=== PATIENT | female | born 1975 | race Caucasian/White ===

== ENCOUNTER → 2016-12-22 | Outpatient (CLI) | payer BC ==
[~2016-12-22] MED LIST: ALPR.25T; AMOX250S6 PO; ATN50T PO; CYCL-97 PO; DULO30CA; HYDR1TAB PO; HYDR473S16 PO; LVF500T; LVT.025T PO; METH4TAB PO; PARO40TA47 PO; PHEN200T27 PO; PRM25T; tetracaine suckers PO
--- NOTE | 2016-12-22 19:37 | Diagnostic Imaging Report ---
Digital mammogram bilateral screening with tomosynthesis. This study was compared to the prior exams of 12/14/2015, 12/05/2014, and 10/14/2012. At this time, there are no current complaints. The current study was also evaluated with a Computer Aided Detection (CAD) system. FINDINGS: The fibroglandular tissue in both breasts is heterogeneously dense. This does limit the sensitivity of this exam. Overall, there does not appear to have been any significant change when compared to the prior study. No primary or secondary sign of malignancy is noted. 3D tomographic images fail to show any sign of malignancy. IMPRESSION: There is no radiographic evidence for malignancy. ACR BI-RADS Category 1: Negative. Result letter will be mailed to the patient. Note: At least 10% of breast cancer is not imaged by mammography. Dictated by: Dictated on workstation # [id number]
== END ==
LOC: RAD 07:16
PROVIDERS: ATTEND Internal Medicine
DX: Z12.31 Encounter for screening mammogram for malignant neoplasm of breast (principal)
CPT/HCPCS: 77067

== ENCOUNTER → 2017-07-16 | Outpatient (CLI) | payer BC, OTHER | LOC: ONC 13:52 | PROVIDERS: ATTEND Nurse Practitioner Adult Health | DX: Z71.89 Other specified counseling (principal); Z80.0 Family history of malignant neoplasm of digestive organs; Z80.3 Family history of malignant neoplasm of breast; Z80.49 Family history of malignant neoplasm of other genital organs; I10 Essential (primary) hypertension; E03.9 Hypothyroidism, unspecified; F32.9 Major depressive disorder, single episode, unspecified; Z79.899 Other long term (current) drug therapy | CPT/HCPCS: 99213 ==

== ENCOUNTER → 2018-01-15 | Outpatient (CLI) | payer BC ==
--- NOTE | 2018-01-15 17:55 | Diagnostic Imaging Report ---
INDICATION: Routine screening. COMPARISON: Prior study from 12/22/2016 and 12/14/2015. EXAMINATION: Bilateral digital screening mammogram with CAD. 3D tomographic images were obtained and reviewed. The current study was also evaluated with a Computer Aided Detection (CAD) system. FINDINGS: Both breasts remain heterogeneously dense, limiting the sensitivity of mammography. The parenchymal pattern appears stable. No mass or malignant appearing microcalcifications are seen. The axillae are unremarkable. IMPRESSION: BI-RADS category 1. No mammographic features suspicious for malignancy are identified. Dictated by: Dictated on workstation # [id number]
== END ==
LOC: RAD 07:27
PROVIDERS: ATTEND Internal Medicine
DX: Z12.31 Encounter for screening mammogram for malignant neoplasm of breast (principal)
CPT/HCPCS: 77067

== ENCOUNTER → 2019-02-04 | Outpatient (CLI) | payer BC ==
--- NOTE | 2019-02-04 09:17 | Diagnostic Imaging Report ---
INDICATION: Routine screening. COMPARISON: 01/15/2018 and 12/22/2016. TECHNIQUE: 2D and 3D bilateral screening mammography was performed with CAD. FINDINGS: Both breasts are heterogeneously dense, limiting the sensitivity of mammography. The parenchymal pattern is stable. No mass or malignant appearing microcalcifications are seen. Occasional benign calcifications are noted. The axillae are unremarkable. IMPRESSION: No mammographic features suspicious for malignancy are identified. ACR BI-RADS Category 2: Benign findings. Result letter will be mailed to the patient. Note: At least 10% of breast cancer is not imaged by mammography. Dictated by: Dictated on workstation # [id number]
== END ==
LOC: RAD 07:51
PROVIDERS: ATTEND Internal Medicine
DX: Z12.31 Encounter for screening mammogram for malignant neoplasm of breast (principal)
CPT/HCPCS: 77067

== ENCOUNTER → 2020-02-15 | Outpatient (CLI) | payer BC ==
--- NOTE | 2020-02-15 11:57 | Diagnostic Imaging Report ---
INDICATION: Routine screening. Comparison is made with prior mammogram from 02/04/2019 and 01/15/2018. 2-D and 3-D bilateral screening mammography was performed with CAD. Both breasts are heterogeneously dense, limiting the sensitivity of mammography. The parenchymal pattern is stable. No mass or malignant appearing microcalcifications are seen. Axillae are unremarkable. IMPRESSION: BI-RADS Category 1 No mammographic features suspicious for malignancy are identified. ACR BI-RADS Category 1: Negative. Result letter will be mailed to the patient. Note: At least 10% of breast cancer is not imaged by mammography. Dictated by: Dictated on workstation # [id number]
== END ==
LOC: RAD 07:45
PROVIDERS: ATTEND Internal Medicine
DX: Z12.31 Encounter for screening mammogram for malignant neoplasm of breast (principal)
CPT/HCPCS: 77063; 77067

== ENCOUNTER → 2021-02-15 | Outpatient (CLI) | payer BC ==
--- NOTE | 2021-02-18 11:28 | Diagnostic Imaging Report ---
INDICATION: Routine screening. Comparison is made prior mammogram from 02/15/2020 and 02/04/2019. 2-D and 3-D bilateral screening mammography was performed with CAD. Both breasts are heterogeneously dense, limiting the sensitivity of mammography. The parenchymal pattern is stable. No mass or malignant-appearing microcalcifications are seen. There are benign calcifications in the left breast. Axillae are unremarkable. IMPRESSION: BI-RADS Category 2 No mammographic features suspicious for malignancy are identified. ACR BI-RADS Category 2: Benign findings. Result letter will be mailed to the patient. Note: At least 10% of breast cancer is not imaged by mammography. Dictated by: Dictated on workstation # [id number]
== END ==
LOC: RAD 08:15
PROVIDERS: ATTEND Internal Medicine
DX: Z12.31 Encounter for screening mammogram for malignant neoplasm of breast (principal)
CPT/HCPCS: 77063; 77067

== ENCOUNTER → 2022-02-21 | Outpatient (CLI) | payer BC ==
--- NOTE | 2022-02-21 11:33 | Diagnostic Imaging Report ---
Indication: Routine screening. Comparison is made with prior mammograms from 02/15/2021 and 02/15/2020. 2-D and 3-D bilateral screening mammography was performed with CAD. Both breasts are heterogeneously dense, limiting the sensitivity of mammography. The parenchymal pattern is stable. No mass or malignant-appearing microcalcifications are seen. There are benign calcifications present. Axillae are unremarkable. IMPRESSION: BI-RADS Category 2 No mammographic features suspicious for malignancy are identified. ACR BI-RADS Category 2: Benign findings. Result letter will be mailed to the patient. Note: At least 10% of breast cancer is not imaged by mammography. Dictated by: Dictated on workstation # [id number]
== END ==
LOC: RAD 07:17
PROVIDERS: ATTEND Internal Medicine
DX: Z12.31 Encounter for screening mammogram for malignant neoplasm of breast (principal)
CPT/HCPCS: 77063; 77067

== ENCOUNTER → 2022-04-23 | Outpatient (CLI) | payer BC ==
--- NOTE | 2022-04-23 14:26 | Diagnostic Imaging Report ---
INDICATION: Pain and swelling in both hands. TECHNIQUE: AP, oblique, and lateral views of both hands were obtained. FINDINGS: No fracture or acute bony abnormality is seen. The joint spaces are unremarkable. IMPRESSION: Negative bilateral hands. Dictated by: Dictated on workstation # [id number]
== END ==
LOC: RAD 07:04
PROVIDERS: ATTEND Internal Medicine
DX: M19.041 Primary osteoarthritis, right hand (principal); M19.042 Primary osteoarthritis, left hand

== ENCOUNTER 2022-10-22 09:28 | Outpatient (CLI) | payer BC ==
[~2022-10-22] VITALS: Ht 165.1 cm; Wt 71.8 kg
[2022-10-22] MEDS ORDERED: LEVO50TA6 PO (14:16)
[2022-10-22] MEDS ORDERED: AMPH20TA2 PO (14:16)
[2022-10-22] MEDS ORDERED: OLME20TA24 PO (14:16)
[2022-10-22] MEDS ORDERED: PARO40TA3 PO (14:16)
[2022-10-22] MEDS ORDERED: ACYC-112 PO (14:16)
[2022-10-22] MEDS ORDERED: AMLO-250 PO (14:16)
[2022-10-22] MEDS ORDERED: MELO15TA39 PO (14:16)
[2022-10-22] MEDS ORDERED: LIOT25TA11 PO (14:16)
[2022-10-22] MEDS ORDERED: ATEN25TA PO (14:16)
[2022-10-22] MEDS ORDERED: ESTR1TAB24 PO (14:16)
== END 2022-10-22 14:19 | disposition home or self-care (01) ==
LOC: PREOP 09:28
PROVIDERS: ATTEND Surgery
DX: Z01.818 Encounter for other preprocedural examination (principal)

== ENCOUNTER → 2022-10-24 | Outpatient (CLI) | payer BC ==
[~2022-10-24] MED LIST changes: +ACYC-112 PO; +AMLO-250 PO; +AMPH20TA2 PO; +ATEN25TA PO; +ESTR1TAB24 PO; +LEVO50TA6 PO; +LIOT25TA11 PO; +MELO15TA39 PO; +OLME20TA24 PO; +PARO40TA3 PO
== END ==
LOC: CARD 10:17
PROVIDERS: ATTEND Internal Medicine
DX: I34.0 Nonrheumatic mitral (valve) insufficiency (principal)
CPT/HCPCS: 93306

== ENCOUNTER 2022-10-29 12:22 | Day surgery (SDC) | payer BC ==
[~2022-10-29] VITALS: Ht 165 cm; Wt 71.8 kg
[2022-10-29] MEDS ORDERED: LACTATED RINGERS 1,000 ML IV STA (12:24)
[2022-10-29] MEDS ORDERED: LIDOCAINE JELLY 2% 6 ML SYRINGE MM PRN (12:30)
[2022-10-29 12:35] VITALS: BP 140/84
--- NOTE | 2022-10-29 13:01 | Progress Note-Pre Operative ---
Pre-Operative Progress Note Date of Available H&P: Oct 29, 2022 Date H&P Reviewed: Oct 29, 2022 Time H&P Reviewed: 13:00 History & Physical: No changes noted Pre-Operative Diagnosis: screening o TAWANNA RUTH MD Oct 29, 2022 13:01
--- NOTE | 2022-10-29 13:02 | Discharge Inst-Surgical ---
D/C Lap Instructions-FLORY Follow Up Activity as tolerated High Fiber Diet 25g or more per day Avoid Alcohol, Caffeine, Spicy [place] and Acid foods. Drink 64 fluid oz or more of fluids per day. Symptoms to Report: Fever over 101 degree F, Nausea/Vomiting If any problems/questions: Contact your physician or go to Emergency Room TAWANNA RUTH MD Oct 29, 2022 13:02
[2022-10-29] MEDS ORDERED: ONDANSETRON 4 MG/2 ML (SDV) Z0FRAN IVP PRN (13:15)
[2022-10-29] MEDS ORDERED: ONDANSETRON 4 MG (ZOFRAN) ORAL DISSOLVE TAB PO PRN (13:15)
[2022-10-29] MEDS ORDERED: LACTATED RINGERS 1,000 ML IV ONE (13:42)
[2022-10-29] MEDS ORDERED: PROPOFOL INJECTION 50 ML IV ONE (13:45)
[2022-10-29] MEDS ORDERED: MIDAZOLAM 2 MG/2 ML (VERSED) VIAL ONE (13:45)
[2022-10-29 14:15] VITALS: BP 130/73
--- NOTE | 2022-10-29 14:15 | Anesthesia-General Post-Op ---
MAC Patient Condition Mental Status/LOC: Same as Preop Cardiovascular: Satisfactory Nausea/Vomiting: Absent Respiratory: Satisfactory Pain: Controlled Complications: Absent Post Op Complications Complications None Follow Up Care/Instructions Patient Instructions None needed. Anesthesiology Discharge Order Discharge Order Patient is doing well, no complaints, stable vital signs, no apparent adverse anesthesia problems. No complications reported per nursing. ALEX MOORE CARTOGRAPHY TECHNICIAN Oct 29, 2022 14:15
[2022-10-29 14:20] VITALS: BP 151/82
[2022-10-29] MEDS ORDERED: LIDOCAINE JELLY 2% 6 ML SYRINGE ONE (14:20)
--- NOTE | 2022-10-29 14:31 | Progress Note-Post Operative ---
Post-Operative Progess Note Surgeon (s)/Marble Machine Operator (s) Surgeon TAWANNA RUTH MD Marble Machine Operator: none Pre-Operative Diagnosis screening colo Post-Operative Diagnosis normal colon and rectum Procedure & Operative Findings Date of Procedure 10/29/22 Procedure Performed/Findings colonoscopy Anesthesia Type mac Estimated Blood Loss Estimated blood loss (mL): minimal Specimens/Packing Specimens Removed none TAWANNA RUTH MD Oct 29, 2022 14:31
[2022-10-29 14:40] VITALS: BP 153/89
--- NOTE | 2022-10-29 23:11 | OPERATIVE REPORT ---
DATE OF SERVICE: 10/29/2022 PRIMARY CARE PHYSICIAN: Ernestine Will DO PREOPERATIVE DIAGNOSIS: Screening colonoscopy with family history of colon cancer. POSTOPERATIVE DIAGNOSIS: Normal colon and rectum. PROCEDURE: Colonoscopy. SURGEON: Tawanna Garcia MD ANESTHESIA: Monitored anesthesia care. ESTIMATED BLOOD LOSS: Minimal. FINDINGS: Normal colon and rectum. DISPOSITION: The patient tolerated the procedure well. INDICATIONS: The patient is a 46-year-old female referred over to us for screening colonoscopy. She states that she did have a colonoscopy before; however, was greater than 10 years ago. She does have a family history of colon cancer with her father having the disease at around age 45. She also reports that her mother and sister were both diagnosed with breast cancer. Based on these parameters and the [place] criteria, she may be at risk for hereditary nonpolyposis colorectal cancer syndrome or Rico syndrome. DESCRIPTION OF PROCEDURE: The patient was brought to the endoscopy suite and laid in the left lateral decubitus position. After adequate IV pain sedative medications and monitored anesthesia care, a digital rectal examination was performed. No significant hemorrhoids identified. Normal sphincter tone was felt and there were no palpable masses. The endoscope was then intubated into the anus, rectum gently insufflated. The endoscope was then advanced through the valves of [place] of the rectum with no polyps or any neoplasms identified. The endoscope was then advanced through the sigmoid colon where no diverticulosis identified. We then proceeded through the remainder of the descending, transverse and ascending colon to the cecum, which were normal. There were no polyps or any neoplasms identified throughout the colon or rectum. The endoscope was then slowly withdrawn while taking a second look and suctioning of residual air with no additional findings. The patient tolerated the procedure well. We will recommend continued medical management with a high-fiber diet with at least 25 grams of fiber daily as well as significant amounts of water to promote soft consistency stools on a daily basis. Due to her first-degree family history of colon cancer as well as strong family history of cancers in general, she will need to have followup colonoscopies every 5 years. Job ID: [id number] DocumentID: [id number] Dictated Date: 10/29/2022 14:19:01 Plasterer Rough Date: 10/29/2022 23:09:00 Dictated By: TAWANNA GARCIA MD
== END 2022-10-29 14:47 | disposition home or self-care (01) ==
LOC: ENDO 12:22
PROVIDERS: ATTEND Surgery
DX: Z12.11 Encounter for screening for malignant neoplasm of colon (principal); Z80.0 Family history of malignant neoplasm of digestive organs; Z85.3 Personal history of malignant neoplasm of breast

== ENCOUNTER 2022-10-31 12:21 | Day surgery (SDC) | payer BC ==
[~2022-10-31] VITALS: Ht 175.3 cm; Wt 71.8 kg
[2022-10-31] MEDS ORDERED: IRON DEXTRAN 25 MG/NS 6.25 ML TOTAL VOLUME IV ONE ×3 (13:00)
[2022-10-31] MEDS ORDERED: IRON DEXTRAN 1,000 MG/NS 250 ML IVPB IV ONE ×2 (13:15)
[2022-10-31 15:00] VITALS: BP 0/0
== END 2022-10-31 15:00 | disposition home or self-care (01) ==
LOC: SDC 12:21
PROVIDERS: ATTEND Internal Medicine
DX: E61.1 Iron deficiency (principal)
CPT/HCPCS: 96365

== ENCOUNTER → 2023-02-27 | Outpatient (CLI) | payer BC ==
--- NOTE | 2023-02-27 09:58 | Diagnostic Imaging Report ---
Indication: Routine screening. Comparison is made with prior mammograms 02/21/2022 and 02/15/2021. 2-D and 3-D bilateral screening mammography was performed with CAD. Both breasts are heterogeneously dense, limiting the sensitivity of mammography. The parenchymal pattern is stable. No mass or malignant-appearing microcalcifications are seen. Axillae are unremarkable. IMPRESSION: BI-RADS Category 1 No mammographic features suspicious for malignancy are identified. ACR BI-RADS Category 1: Negative. Result letter will be mailed to the patient. Note: At least 10% of breast cancer is not imaged by mammography. Dictated by: Dictated on workstation # [id number]
== END ==
LOC: RAD 07:25
PROVIDERS: ATTEND Internal Medicine
DX: Z12.31 Encounter for screening mammogram for malignant neoplasm of breast (principal)
CPT/HCPCS: 77063; 77067